=== PATIENT | female | born 1985 | race Caucasian/White ===

== ENCOUNTER 2016-09-04 18:40 | Emergency (ER) | payer MEDICAID ==
[2016-09-04 18:46] VITALS: RESP 16; TEMP 98; O2SAT 98; BMI 31.3
--- NOTE | 2016-09-04 19:13 | ED PDOC ---
Arrival/HPI - General Chief Complaint: Dizziness/Lightheaded Time Seen by Provider: 09/04/16 18:53 Historian: Patient - History of Present Illness Time/Duration: Prior to Arrival Symptom Onset: Gradual Symptom Course: Unchanged Severity Level: Mild Activities at Onset: Rest Associated Symptoms (Text): 09/04/16 19:09 Patient was smoking hookah with some friends and some strangers which is something that she does on a daily basis. She reports that she developed some palpitations and lightheadedness and believes that someone slipped her something. She denies alcohol or drugs. No chest pain. No weakness. No difficulty with ADLs. No nausea or vomiting. No injury or trauma. No headache. Past Medical History - Psychiatric Hx Substance Use: No Family/Social History - Physician Review Nursing Documentation Reviewed: Yes Family/Social History: Unknown Family HX Smoking Status: Heavy Smoker > 10 Cigarettes Daily Hx Alcohol Use: No Hx Substance Use: No Allergies/Home Meds Allergies/Adverse Reactions: Allergies No Known Allergies Allergy (Unverified 09/04/16 19:07) Review of Systems - Physician Review All systems were reviewed & negative as marked: Yes - Review of Systems Constitutional: absent: Fatigue, Fevers Respiratory: Normal. absent: SOB, Cough, Wheezing Cardiovascular: Palpitations. absent: Chest Pain, Syncope Gastrointestinal: absent: Abdominal Pain, Constipation, Diarrhea, Nausea, Vomiting Genitourinary Female: absent: Dysuria, Frequency, Hematuria Neurological: Dizziness. absent: Headache, Focal Weakness, Gait Changes, Speech Changes, Facial Droop, Disequilibrium, Seizure Physical Exam Vital Signs Temp Pulse Resp BP Pulse Ox 09/04/16 20:40 62 16 113/68 09/04/16 18:43 98.0 F 94 H 16 137/79 98 Temperature: Afebrile Blood Pressure: Normal Pulse: Regular Respiratory Rate: Normal Appearance: Positive for: Well-Appearing, Non-Toxic, Comfortable Pain Distress: None Mental Status: Positive for: Alert and Oriented X 3 - Systems Exam Head: Present: Atraumatic, Normocephalic Pupils: Present: PERRL Extroacular Muscles: Present: EOMI Conjunctiva: Present: Normal Ears: Present: NORMAL TM, Normal Canal. No: Erythema Mouth: Present: Moist Mucous Membranes Pharnyx: No: ERYTHEMA, EXUDATE, TONSILS ENLARGED Neck: Present: Normal Range of Motion Respiratory/Chest: Present: Clear to Auscultation, Good Air Exchange. No: Respiratory Distress, Accessory Muscle Use Cardiovascular: Present: Regular Rate and Rhythm, Normal S1, S2. No: Murmurs Abdomen: Present: Normal Bowel Sounds. No: Tenderness, Distention, Peritoneal Signs, Rebound, Guarding Upper Extremity: Present: Normal Inspection. No: Cyanosis, Edema Lower Extremity: Present: Normal Inspection. No: Edema Neurological: Present: GCS=15, CN II-XII Intact, Speech Normal, Motor Func Grossly Intact, Normal Sensory Function, Normal Cerebellar Funct, Gait Normal Skin: Present: Warm, Dry, Normal Color. No: Rashes Psychiatric: Present: Alert, Oriented x 3, Normal Insight, Normal Concentration Medical Decision Making ED Course and Treatment: 09/04/16 19:27 EKG shows normal sinus rhythm rate approximately [address] or T-wave changes and a sinus arrhythmia 09/04/16 20:13 Workup is unrevealing. Drug screen is negative. Patient will be discharged home to follow up with PMD. Follow-up in the ER as needed. Suggest Holter monitor. - Lab Interpretations Lab Results: 09/04/16 19:29 09/04/16 19:29 Lab Results 09/04/16 19:29: WBC 9.4, RBC 4.75, Hgb 14.0, Hct 41.1, MCV 86.5, MCH 29.5, MCHC 34.1, RDW 14.7 H, Plt Count 310, MPV 8.7, Gran % 53.8, Lymph % (Auto) 38.0 H, [place] % (Auto) 6.4 H, Eos % (Auto) 1.6, Baso % (Auto) 0.2, Gran # 5.08, Lymph # 3.6 H, [place] # 0.6, Eos # 0.2, Baso # 0.02, Sodium 137, Potassium 3.5 L, Chloride 105, Carbon Dioxide 28, Anion Gap 8 L, BUN 7, Creatinine 0.7, Est GFR ( Amer) > 60, Est GFR (Non-Af Amer) > 60, Random Glucose 98, Calcium 9.3, Phosphorus 3.7, Magnesium 2.0, Total Bilirubin 0.4, AST 25, ALT 12, Alkaline Phosphatase 64, Lactate Dehydrogenase 376, Total Creatine Kinase 38, Troponin I < 0.01, Total Protein 7.1, Albumin 3.8, Globulin 3.3, Albumin/Globulin Ratio 1.2 , Alcohol, Quantitative < 10 09/04/16 19:00: Urine Color Yellow, Urine Appearance Clear, Urine pH 6.0, Ur Specific [place] 1.025, Urine Protein Negative, Urine Glucose (UA) Negative, Urine Ketones Trace H, Urine Blood Negative, Urine Nitrate Negative, Urine Bilirubin Negative, Urine Urobilinogen 0.2, Ur Leukocyte Esterase Negative, Urine Opiates Screen Negative, Urine Methadone Screen Negative, Ur Barbiturates Screen Negative, Ur Phencyclidine Scrn Negative, Ur Amphetamines Screen Negative , U Benzodiazepines Scrn Negative, U Oth Cocaine Metabols Negative, U Cannabinoids Screen Negative - Medication Orders Current Medication Orders: Discontinued Medications Potassium Chloride (K-Dur 20 Meq Er Tab) 20 meq PO STAT STA Stop: 09/04/16 20:13 Last Admin: 09/04/16 20:35 Dose: 20 MEQ Disposition/Present on Arrival - Present on Arrival Any Indicators Present on Arrival: No History of DVT/PE: No History of Uncontrolled Diabetes: No Urinary Catheter: No History of Decub. Ulcer: No History Surgical Site Infection Following: None - Disposition Have Diagnosis and Disposition been Completed?: Yes Diagnosis: Palpitations, Substance abuse, Lightheaded, Hypokalemia Disposition: HOME/ ROUTINE Disposition Time: 20:14 Patient Plan: Discharge Condition: GOOD Discharge Instructions (ExitCare): Palpitations (ED), Holter Monitoring (ED) Additional Instructions: Follow-up with PMD. Follow-up in the ER as needed. Referrals: Migel Leone MD [Primary Care Provider] - Follow up with primary
[2016-09-04 19:28] LABS: URINE BILIRUBIN NEGATIVE (NEGATIVE); URINE BLOOD NEGATIVE (NEGATIVE); URINE GLUCOSE (UA) NEGATIVE (NEGATIVE); URINE KETONE TRACE mg/dL (NEGATIVE); URINE LEUKOCYTE ESTERASE NEGATIVE Leu/uL (NEGATIVE); URINE PROTEIN NEGATIVE mg/dL (<30 mg/dL); URINE UROBILINOGEN 0.2 E.U./dL (<1 E.U./dL)
[2016-09-04 19:30] LABS: ADD MANUAL DIFF? NO
[2016-09-04 19:32] LABS: BASO # 0.02 K/mm3 (0.0-2.0); BASO % 0.2 % (0.0-3.0); EOS # 0.2 (0.0-0.7); EOS % 1.6 % (1.5-5.0); GRAN # 5.08 (1.4-6.5); GRAN % 53.8 % (50.0-68.0); HEMATOCRIT 41.1 % (36.0-48.0); LYMPH # 3.6 (1.2-3.4); MEAN CELL VOLUME 86.5 fL (80.0-105.0); MEAN CORPUSCULAR HEMOGLOBIN 29.5 pg (25.0-35.0); MEAN CORPUSCULAR HGB CONC 34.1 g/dl (31.0-37.0); MEAN PLATELET VOLUME 8.7 fl (7.0-11.0); MONO # 0.6 (0.1-0.6); MONO % 6.4 % (1.0-6.0); PLATELET COUNT 310 10^3/uL (120.0-450.0); RED CELL DISTRIBUTION WIDTH 14.7 % (11.5-14.5); WHITE BLOOD COUNT 9.4 10^3/ul (4.5-11.0)
[2016-09-04 19:37] LABS: URINE APPEARANCE CLEAR (CLEAR); URINE COLOR YELLOW (YELLOW)
[2016-09-04 19:47] LABS: ALB/GLOB RATIO 1.2 (1.1-1.8); ALKALINE PHOSPHATASE 64 U/L (38-133); ALT/SGPT 12 U/L (7-56); AST/SGOT 25 U/L (15-39); BILIRUBIN,TOTAL 0.4 mg/dL (0.2-1.3); BLOOD UREA NITROGEN 7 mg/dL (7-21); CALCIUM 9.3 mg/dL (8.4-10.5); CARBON DIOXIDE 28 mmol/L (21-33); CHLORIDE 105 mmol/L (98-107); GFR AFRICAN-AMERICAN > 60; GLUCOSE,RANDOM 98 mg/dL (70-110); PHOSPHOROUS 3.7 mg/dL (2.5-4.5); POTASSIUM 3.5 mmol/L (3.6-5.0); SODIUM 137 mmol/L (132-148); TOTAL PROTEIN 7.1 g/dL (5.8-8.3)
[2016-09-04 20:05] LABS: TROPONIN I < 0.01 ng/mL
[2016-09-04] MEDS ORDERED: Potassium Chloride 20 mEq ER Tab PO STA (20:12)
[2016-09-04 20:42] VITALS: BP 113/68; PULSE 62
--- NOTE | 2016-09-05 10:05 | CARD ---
APPROVED REPORT EKG Measurement Heart [id number] <Conclusion> Normal sinus rhythm with sinus arrhythmia Normal ECG
== END 2016-09-04 20:40 | disposition home or self-care (01) ==
LOC: ED 18:40 → MERGE 18:40 → ED 20:40
DX: R00.2 Palpitations (principal); E87.6 Hypokalemia; R42 Dizziness and giddiness; F19.10 Other psychoactive substance abuse, uncomplicated

== ENCOUNTER 2017-07-08 14:08 | Emergency (ER) | payer MEDICAID ==
[2017-07-08 14:09] VITALS: BMI 31.3
[2017-07-08 14:27] VITALS: PULSE 98; RESP 18; TEMP 98.9; O2SAT 99
[2017-07-08] MEDS ORDERED: Sodium Chloride 0.9% 1,000 ML IV STA (14:36)
--- NOTE | 2017-07-08 15:11 | ED PDOC ---
Arrival/HPI - General Chief Complaint: Abdominal Pain Time Seen by Provider: 07/08/17 14:35 Historian: Patient - History of Present Illness Narrative History of Present Illness (Text): 07/08/17 15:00 32yo female with no PMHx who present to ED requesting US to r/o ectopic . She report that her last was ectopic of which she took Methotrexate 2years ago. States she found out she is on the while in [place] and her Beta was 5,000. States she had mild abdominal cramping yesterday that resolved, but came to the ED because she wants US. States she have not seen her OB here yet. She denies current abdominal pain, vaginal bleeding, urinary symptoms, nausea, vomiting, diarrhea, dizziness, any other complaint. Past Medical History - Provider Review Nursing Documentation Reviewed: Yes - Infectious Disease Hx of Infectious Diseases: None - Psychiatric Hx Substance Use: No - Surgical History Other/Comment: ectopic preg - Anesthesia Hx Anesthesia: No Family/Social History - Physician Review Nursing Documentation Reviewed: Yes Family/Social History: Unknown Family HX Smoking Status: Heavy Smoker > 10 Cigarettes Daily Hx Alcohol Use: No Hx Substance Use: No Allergies/Home Meds Allergies/Adverse Reactions: Allergies No Known Allergies Allergy (Verified 07/08/17 14:26) Home Medications: Home Meds Medication Instructions Recorded Confirmed Amoxicillin 0 mg PO 07/08/17 Review of Systems - Physician Review All systems were reviewed & negative as marked: Yes - Review of Systems Constitutional: Normal Eyes: Normal ENT: Normal Respiratory: Normal Cardiovascular: Normal Gastrointestinal: Abdominal Pain. absent: Constipation, Diarrhea, Nausea, Vomiting, Hematochezia, Hematemesis Genitourinary Female: Normal Musculoskeletal: Normal Skin: Normal Neurological: Normal Endocrine: Normal Hemo/Lymphatic: Normal Psychiatric: Normal Physical Exam Vital Signs Reviewed: Yes Vital Signs Temp Pulse Resp BP Pulse Ox 07/08/17 16:05 18 141/76 07/08/17 14:21 98.9 F 98 H 18 128/84 99 Temperature: Afebrile Blood Pressure: Normal Pulse: Regular Respiratory Rate: Normal Appearance: Positive for: Well-Appearing, Non-Toxic, Comfortable Pain Distress: None Mental Status: Positive for: Alert and Oriented X 3 - Systems Exam Head: Present: Atraumatic, Normocephalic Pupils: Present: PERRL Extroacular Muscles: Present: EOMI Conjunctiva: Present: Normal Mouth: Present: Moist Mucous Membranes Neck: Present: Normal Range of Motion Respiratory/Chest: Present: Clear to Auscultation, Good Air Exchange. No: Respiratory Distress, Accessory Muscle Use Cardiovascular: Present: Regular Rate and Rhythm, Normal S1, S2. No: Murmurs Abdomen: Present: Normal Bowel Sounds. No: Tenderness, Distention, Peritoneal Signs Back: Present: Normal Inspection Upper Extremity: Present: Normal Inspection. No: Cyanosis, Edema Lower Extremity: Present: Normal Inspection. No: Edema Neurological: Present: GCS=15, CN II-XII Intact, Speech Normal Skin: Present: Warm, Dry, Normal Color. No: Rashes Psychiatric: Present: Alert, Oriented x 3, Normal Insight, Normal Concentration Medical Decision Making ED Course and Treatment: 07/08/17 16:26 Pt in ED for stated history. she denied any somatic complain in ED. Came to ED for US. Notes that her beta was 5000.00 on the . Repeat beta in Ed is 19,471.00 Transvaginal US 5wks 6days IUP @ 165bpm noted Result was DW the pt. she was advised to f/u with her OB - Lab Interpretations Lab Results: Lab Results 07/08/17 15:00: Beta HCG, Quant 03864.00 H - RAD Interpretation Radiology Orders: 07/08/17 14:35 OB TRANSVAGINAL [US] Stat Disposition/Present on Arrival - Present on Arrival Any Indicators Present on Arrival: No History of DVT/PE: No History of Uncontrolled Diabetes: No Urinary Catheter: No History of Decub. Ulcer: No History Surgical Site Infection Following: None - Disposition Have Diagnosis and Disposition been Completed?: Yes Diagnosis: Abdominal pain, Disposition: HOME/ ROUTINE Disposition Time: 16:30 Patient Plan: Discharge Condition: STABLE Discharge Instructions (ExitCare): (ED) Additional Instructions: Follow up with your OB Return to ED for any new or worsening symptoms Referrals: Migel Leone MD [Primary Care Provider] - Follow up with primary Owen Sanders MD [Staff Provider] - Follow up with primary Forms: [employer] ([place])
--- NOTE | 2017-07-08 15:41 | US ---
PROCEDURE: OB Pelvic Ultrasound HISTORY: Abdominal pain/ COMPARISON: None available. FINDINGS: UTERUS: Single Live intrauterine gestation. CRL equivalent to 0.49 cm corresponding to 6 weeks and 1 day of gestation Gestational sac diameter measures 1.3 cm corresponding to equivalent to 5 weeks and 4 days of gestation age (Ultrasound estimated): 5 weeks and 6 days Date of delivery (Ultrasound estimated) : 03/04/2018 Heart rate: 165 bpm. Karolina-gestational hemorrhage: None. Uterus measures 8.4 x 4.5 x 5.6 cm. Anteverted and normal in size. CERVIX: Long and closed. No cervical abnormality seen. RIGHT OVARY: Measures 2.5 x 1.9 x 2.7 cm. No mass. Normal flow. LEFT OVARY: Measures 3.0 x 2.3 x 3.2 cm. No mass. Normal flow. FREE FLUID: None. OTHER FINDINGS: None. IMPRESSION: Single live intrauterine gestation with mean gestational age of 5 weeks and 6 days. Estimated date of delivery by ultrasound is 03/04/2018. The ultrasound dates correspond with the clinical dates.
[2017-07-08 16:05] VITALS: BP 141/76
== END 2017-07-08 16:37 | disposition home or self-care (01) ==
LOC: ED 14:08
DX: O26.891 Other specified pregnancy related conditions, first trimester (principal); Z3A.01 Less than 8 weeks gestation of pregnancy; R10.9 Unspecified abdominal pain; F17.210 Nicotine dependence, cigarettes, uncomplicated

== ENCOUNTER 2018-05-12 13:04 | Emergency (ER) | payer MEDICAID ==
[2018-05-12 13:18] VITALS: BMI 28.6
--- NOTE | 2018-05-12 13:53 | ED PDOC ---
Arrival/HPI - General Chief Complaint: Dental Pain Historian: Patient - History of Present Illness Narrative History of Present Illness (Text): 05/12/18 13:50 33 year old female, with no significant past medical history, presents to the emergency department with abscess in mouth, since 3 weeks ago. Patient states she went to the dentist who told her she had an infection and prescribed her amoxicillin. Patient states she was then unable to refill her prescription because her insurance lapsed. Patient states she then borrowed some penicillin from a friend, which she had an adverse reaction to. Patient denies any difficulty swallowing, fevers, chills, headache, dizziness, chest pain, shortness of breath, cough, abdominal pain, nausea, vomiting, diarrhea, back pain, neck pain, urinary/bowel changes, or any other complaint. Time/Duration: Prior to Arrival, < month (Original infection started 3 weeks ) Symptom Course: Unchanged Quality: Aching Past Medical History - Provider Review Nursing Documentation Reviewed: Yes - Travel History Have you recently traveled outside [place] w/in the past 3 mons?: No - Infectious Disease Hx of Infectious Diseases: None - Psychiatric Hx Substance Use: No - Surgical History Other/Comment: ectopic preg - Anesthesia Hx Anesthesia: No Family/Social History - Physician Review Nursing Documentation Reviewed: Yes Family/Social History: No Known Family HX Smoking Status: Heavy Smoker > 10 Cigarettes Daily Hx Alcohol Use: No Hx Substance Use: No Allergies/Home Meds Allergies/Adverse Reactions: Allergies Penicillins Allergy (Verified 05/12/18 13:19) RASH Review of Systems - Physician Review All systems were reviewed & negative as marked: Yes - Review of Systems Constitutional: absent: Fevers, Night Sweats ENT: absent: Sore Throat (no difficulty swallowing) Respiratory: absent: SOB, Cough Cardiovascular: absent: Chest Pain Gastrointestinal: absent: Abdominal Pain, Diarrhea, Nausea, Vomiting Genitourinary Female: absent: Urine Output Changes Musculoskeletal: absent: Back Pain, Neck Pain Skin: Abscess (on inside left cheek) Neurological: absent: Headache, Dizziness Physical Exam Vital Signs Reviewed: Yes Vital Signs Temp Pulse Resp BP Pulse Ox 05/12/18 13:16 97.9 F 86 16 129/79 98 Temperature: Afebrile Blood Pressure: Normal Pulse: Regular Respiratory Rate: Normal Appearance: Positive for: Well-Appearing, Non-Toxic, Comfortable Pain Distress: None Mental Status: Positive for: Alert and Oriented X 3 - Systems Exam Head: Present: Atraumatic, Normocephalic. No: Swelling (no facial swelling) Pupils: Present: PERRL Extroacular Muscles: Present: EOMI Conjunctiva: Present: Normal Mouth: Present: Moist Mucous Membranes, Other (Left molar noted; empty socket noted to the left posterior hard palate) Pharnyx: No: ERYTHEMA (no erythema to hard palate), EXUDATE (no tonsillar exudate), TONSILS ENLARGED, Uvular Deviation Neck: Present: Normal Range of Motion Respiratory/Chest: Present: Clear to Auscultation, Good Air Exchange. No: Respiratory Distress, Accessory Muscle Use Cardiovascular: Present: Regular Rate and Rhythm, Normal S1, S2. No: Murmurs Abdomen: No: Tenderness, Distention, Peritoneal Signs Back: Present: Normal Inspection Neurological: Present: Speech Normal Skin: Present: Warm, Dry, Normal Color. No: Rashes Psychiatric: Present: Alert, Oriented x 3, Normal Insight, Normal Concentration Medical Decision Making ED Course and Treatment: 05/12/18 13:58 Impression: 33 year old female presents with infected oral abscess Plan: -- Urinalysis -- Reassess and disposition Prior Visits: Notes and results from previous visits were reviewed. Progress Notes: 05/12/18 Patient given new prescription of antibiotics. She is advised to follow up with the dentist within the week. She is stable for discharge. - Scribe Statement The provider has reviewed the documentation as recorded by the Clovis Dela Cruz Provider Scribe Attestation: All medical record entries made by the Darrellibtravis were at my direction and personally dictated by me. I have reviewed the chart and agree that the record accurately reflects my personal performance of the history, physical exam, medical decision making, and the department course for this patient. I have also personally directed, reviewed, and agree with the discharge instructions and disposition. Disposition/Present on Arrival - Present on Arrival Any Indicators Present on Arrival: No History of DVT/PE: No History of Uncontrolled Diabetes: No Urinary Catheter: No History of Decub. Ulcer: No History Surgical Site Infection Following: None - Disposition Have Diagnosis and Disposition been Completed?: Yes Diagnosis: Tooth abscess Disposition: HOME/ ROUTINE Disposition Time: 14:00 Patient Plan: Discharge Condition: STABLE Discharge Instructions (ExitCare): Tooth Abscess (DC), Dental Pain (DC) Print Language: BRAZILIAN Additional Instructions: All medical record entries made by the Scribe were at my direction and personally dictated by me. I have reviewed the chart and agree that the record accurately reflects my personal performance of the history, physical exam, medical decision making, and the department course for this patient. I have also personally directed, reviewed, and agree with the discharge instructions and disposition. 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
[2018-05-12 14:48] VITALS: BP 124/85; PULSE 75; RESP 19; TEMP 98; O2SAT 100
== END 2018-05-12 14:48 | disposition home or self-care (01) ==
LOC: ED 13:04
DX: K04.7 Periapical abscess without sinus (principal)